=== PATIENT | male | born 1955 | race Caucasian/White ===

== ENCOUNTER 2021-03-31 08:37 | Inpatient (IN) ==
[2021-03-31] MEDS ORDERED: Naloxone 0.4 MG/ML INJ IVP PRN (12:29)
[2021-03-31] MEDS ORDERED: Melatonin 3 MG TABLET PO PRN (12:29)
[2021-03-31] MEDS ORDERED: Ondansetron ODT 4 MG TAB.RAPDIS SL PRN (12:29)
[2021-03-31] MEDS ORDERED: Mag Hydrox/Al Hydrox/Simeth 30 ML UDC PO PRN (12:29)
[2021-03-31] MEDS ORDERED: MOM Conc 10 ML UD.LIQ PO PRN (12:29)
[2021-03-31] MEDS ORDERED: Perflutren Lipid Microsphere 1.3 ML in 0.9 % Sodium Chloride 8.7 ML IVP PRN (12:32)
[2021-03-31] MEDS ORDERED: Heparin 25,000UNIT/250ML 1/2NS 25,000 UNIT/250 ML IV.SOLN IVC SCH (12:45)
[2021-03-31] MEDS ORDERED: *HR* Heparin 5,000 UNIT/ML VIAL IVP ONE (12:49)
[2021-03-31] MEDS ORDERED: *HR* Heparin 5,000 UNIT/ML VIAL IVP PRN (12:49)
[2021-03-31] MEDS ORDERED: Ipratropium/Albuterol Neb 3 ML IH PRN (12:52)
[2021-03-31 14:36] LABS: Red Cell Distribution Width 14.6 % (11.5-14.5)
[2021-03-31 14:37] LABS: Hematocrit 38.2 % (37.5-50.1); Hemoglobin 12.2 g/dL (12.9-16.9); Mean Corpuscular HGB Conc 31.9 g/dL (31.6-35.5); Mean Platelet Volume 12.3 fL (9.4-12.4); Platelet Count 141 K/mcL (140-400); White Blood Count 26.6 K/mcL (4.3-11.1)
[2021-03-31 14:44] LABS: Heparin anti-factor XA UFH 0.18 IU/mL (0.30-0.70)
[2021-03-31 14:45] LABS: INR 1.2; Prothrombin Time 14.3 Seconds (9.4-12.1)
[2021-03-31 15:10] LABS: Troponin I 0.07 ng/mL (< 0.04)
[2021-03-31] MEDS: Azithromycin 500 MG in 0.9 % Sodium Chloride 250 ML IVPB SCH (16:43)
[2021-03-31] MEDS: predniSONE 20 MG TABLET PO SCH (16:43)
[2021-03-31] MEDS: Heparin 25,000UNIT/250ML 1/2NS 25,000 UNIT/250 ML IV.SOLN IVC SCH (16:44)
[2021-03-31] MEDS: Nicotine 14 MG PATCH.TD24 TD SCH (20:48)
[2021-04-01 06:08] LABS: Hematocrit 33.6 % (37.5-50.1); Hemoglobin 10.9 g/dL (12.9-16.9); Mean Corpuscular HGB Conc 32.4 g/dL (31.6-35.5); Mean Corpuscular Hemoglobin 29.2 pg (28.0-33.3); Mean Corpuscular Volume 90.1 fL (83.0-100.0); Mean Platelet Volume 12.3 fL (9.4-12.4); Platelet Count 130 K/mcL (140-400); Red Blood Count 3.73 M/mcL (4.19-5.50); Red Cell Distribution Width 14.8 % (11.5-14.5); White Blood Count 21.8 K/mcL (4.3-11.1)
[2021-04-01 06:29] LABS: Alanine Aminotransferase 22 Units/L (7-52); Albumin 3.7 g/dL (3.5-5.7); Albumin/Globulin Ratio 1.3 (1.1-2.2); Alkaline Phosphatase 79 Units/L (34-104); Aspartate Amino Transferase 19 Units/L (13-39); BUN/Creatinine Ratio 25 (6-26); Bilirubin,Total 0.3 mg/dL (0.3-1.0); Blood Urea Nitrogen 22 mg/dL (8-23); Carbon Dioxide 23 mEq/L (23-29); Chloride 104 mEq/L (98-107); Chol/HDL Ratio 2.8 (0-4.9); Cholesterol 122 mg/dL (< 200); Globulin 2.9 g/dL (2.4-3.5); Glucose 134 mg/dL (70-105); HDL Cholesterol 43 mg/dL (40-59); LDL Cholesterol,Calculated 61 mg/dL (< 100); Osmolality,Calculated 285 (280-300); Potassium 3.8 mEq/L (3.5-5.1); Sodium 135 mEq/L (136-145); Total Protein 6.6 g/dL (6.4-8.9); Triglycerides 89 mg/dL (< 150); eGFR For African Americans > 60 (> 60); eGFR For Non-African Americans > 60 (> 60)
[2021-04-01] MEDS: Nicotine 14 MG PATCH.TD24 TD SCH (09:20)
[2021-04-01] MEDS: predniSONE 20 MG TABLET PO SCH (09:20)
[2021-04-01] MEDS: Gabapentin 300 MG CAPSULE PO SCH (09:21)
[2021-04-01] MEDS: gemfibroziL 600 MG TABLET PO SCH (10:06)
[2021-04-01] MEDS: Azithromycin 500 MG in 0.9 % Sodium Chloride 250 ML IVPB SCH (12:48)
[2021-04-01] MEDS: Heparin 25,000UNIT/250ML 1/2NS 25,000 UNIT/250 ML IV.SOLN IVC SCH (12:49)
[2021-04-01] MEDS: *HR* Heparin 5,000 UNIT/ML VIAL IVP PRN ×2 (14:08→23:21)
[2021-04-01] MEDS: Piperacillin/Tazobactam 3.375 GM in 0.9 % Sodium Chloride Mini Bag 100 ML IVPB SCH (21:31)
[2021-04-02 01:37] LABS: Basophils % 0.1 %; Hematocrit 32.1 % (37.5-50.1); Hemoglobin 10.1 g/dL (12.9-16.9); Mean Corpuscular HGB Conc 31.5 g/dL (31.6-35.5); Mean Corpuscular Hemoglobin 29.2 pg (28.0-33.3); Mean Corpuscular Volume 92.8 fL (83.0-100.0); Red Blood Count 3.46 M/mcL (4.19-5.50)
[2021-04-02 01:38] LABS: Immature Granulocytes % 0.7 % (0-4); Immature Platelets 15.7 % (1.1-6.1); Lymphocytes # 1.5 K/mcL (0.6-4.6); Lymphocytes % 9.1 %; Mean Platelet Volume 12.8 fL (9.4-12.4); Monocytes # 0.6 K/mcL (0.0-1.3); Monocytes % 3.6 %; Platelet Count 119 K/mcL (140-400); Segmented Neutrophils % 86.5 %; White Blood Count 16.8 K/mcL (4.3-11.1)
[2021-04-02 01:47] LABS: Neutrophils # 14.5 K/mcL (1.6-8.9)
[2021-04-02 01:56] LABS: BUN/Creatinine Ratio 24 (6-26); Blood Urea Nitrogen 21 mg/dL (8-23); Calcium 8.5 mg/dL (8.6-10.3); Carbon Dioxide 23 mEq/L (23-29); Chloride 104 mEq/L (98-107); Glucose 159 mg/dL (70-105); Osmolality,Calculated 286 (280-300); Potassium 3.7 mEq/L (3.5-5.1); Sodium 135 mEq/L (136-145); eGFR For African Americans > 60 (> 60); eGFR For Non-African Americans > 60 (> 60)
[2021-04-02] MEDS: Heparin 25,000UNIT/250ML 1/2NS 25,000 UNIT/250 ML IV.SOLN IVC SCH (04:42)
[2021-04-02] MEDS: Piperacillin/Tazobactam 3.375 GM in 0.9 % Sodium Chloride Mini Bag 100 ML IVPB SCH ×3 (04:43→21:54)
[2021-04-02] MEDS ORDERED: Acetaminophen 325 MG TABLET PO PRN (08:17)
[2021-04-02] MEDS: Gabapentin 300 MG CAPSULE PO SCH (08:36)
[2021-04-02] MEDS: amLODIPine 5 MG TABLET PO SCH (08:36)
[2021-04-02] MEDS: gemfibroziL 600 MG TABLET PO SCH (08:36)
[2021-04-02] MEDS: predniSONE 20 MG TABLET PO SCH (08:36)
[2021-04-02] MEDS: Nicotine 14 MG PATCH.TD24 TD SCH (08:37)
[2021-04-02] MEDS: lisinopriL 5 MG TABLET PO SCH (08:37)
[2021-04-02] MEDS: Azithromycin 500 MG in 0.9 % Sodium Chloride 250 ML IVPB SCH (12:56)
[2021-04-02] MEDS: *HR* Heparin 5,000 UNIT/ML VIAL SQ SCH ×2 (14:22→21:55)
[2021-04-03 03:00] LABS: Basophils % 0.2 %; Hematocrit 31.9 % (37.5-50.1); Hemoglobin 10.2 g/dL (12.9-16.9)
[2021-04-03 03:02] LABS: Immature Granulocytes % 0.9 % (0-4); Immature Platelets 17.5 % (1.1-6.1); Lymphocytes # 1.8 K/mcL (0.6-4.6); Lymphocytes % 13.9 %; Mean Corpuscular Hemoglobin 28.8 pg (28.0-33.3); Mean Corpuscular Volume 90.1 fL (83.0-100.0); Mean Platelet Volume 12.4 fL (9.4-12.4); Monocytes # 0.6 K/mcL (0.0-1.3); Monocytes % 4.8 %; Neutrophils # 10.4 K/mcL (1.6-8.9); Platelet Count 108 K/mcL (140-400); Red Blood Count 3.54 M/mcL (4.19-5.50); Red Cell Distribution Width 14.7 % (11.5-14.5); Segmented Neutrophils % 80.2 %; White Blood Count 12.9 K/mcL (4.3-11.1)
[2021-04-03 03:15] LABS: BUN/Creatinine Ratio 17 (6-26); Blood Urea Nitrogen 17 mg/dL (8-23); Calcium 8.6 mg/dL (8.6-10.3); Carbon Dioxide 24 mEq/L (23-29); Chloride 108 mEq/L (98-107); Glucose 152 mg/dL (70-105); Osmolality,Calculated 293 (280-300); Potassium 4.5 mEq/L (3.5-5.1); Sodium 139 mEq/L (136-145); eGFR For African Americans > 60 (> 60); eGFR For Non-African Americans > 60 (> 60)
[2021-04-03] MEDS: Piperacillin/Tazobactam 3.375 GM in 0.9 % Sodium Chloride Mini Bag 100 ML IVPB SCH (07:00)
[2021-04-03] MEDS: *HR* Heparin 5,000 UNIT/ML VIAL SQ SCH (07:55)
[2021-04-03] MEDS: Nicotine 14 MG PATCH.TD24 TD SCH (08:44)
[2021-04-03] MEDS: gemfibroziL 600 MG TABLET PO SCH (08:44)
[2021-04-03] MEDS: Gabapentin 300 MG CAPSULE PO SCH (08:45)
[2021-04-03] MEDS: amLODIPine 5 MG TABLET PO SCH (08:45)
[2021-04-03] MEDS: predniSONE 20 MG TABLET PO SCH (08:45)
[2021-04-03] MEDS: lisinopriL 5 MG TABLET PO SCH (08:46)
[2021-04-03 11:26] VITALS: BP 136/81
== END 2021-04-03 14:03 | disposition home or self-care (01) | DRG 871 ==
LOC: CDU → 3BNU 04-01 17:01
PROVIDERS: ADMIT Internal Medicine; ATTEND Internal Medicine